=== PATIENT | female | born 1965 | race Caucasian/White ===

== ENCOUNTER → 2017-09-13 07:14 | Outpatient (CLI) | payer BC, SELFPAY ==
[2017-09-13 09:00] LABS: ALB/GLOB Ratio 1.1 RATIO (0.9-2.4); AST(SGOT) 17 U/L (15-37); Alanine Aminotransfer ALT/SGPT 25 U/L (13-56); Albumin, Serum 3.9 g/dL (3.2-5.0); Alkaline Phosphatase 66 U/L (45-117); Anion Gap 7 (5-15); BUN 17 mg/dL (7-18); BUN/Creat Ratio 21.1 RATIO (10-20); Calcium,Total 8.9 mg/dL (8.5-10.1); Chloride 107 mmol/L (98-107); Creatinine, Serum 0.81 mg/dL (0.55-1.02); EST Glomerular Filtration Rate 80 mL/min (>60); Est Glom Filt Rate - Afr Amer 97 mL/min (>60); Free T3 2.9 pg/mL (2.18-3.98); Globulin 3.7 g/dL (2.2-4.2); Glucose 82 mg/dL (74-106); Protein, Total 7.6 g/dL (6.4-8.2); Sodium Level 142 mmol/L (136-145); T4 Free Direct 1.03 ng/dL (0.76-1.46); Thyroid Stim Hormone (TSH) 1.15 uIU/mL (0.358-3.74)
[2017-09-13 10:47] LABS: Vitamin D,25 Hydroxy 59.6 ng/mL (29.95-100.01)
== END ==
PROVIDERS: Family Provider Family Medicine; PCP Family Medicine; Visit Provider Internal Medicine Endocrinology, Diabetes & Metabolism
DX: E89.0 Postprocedural hypothyroidism (principal); E55.9 Vitamin D deficiency, unspecified
CPT/HCPCS: 36415; 80053; 82306; 84439; 84443; 84481

== ENCOUNTER → 2017-09-25 07:35 | Outpatient (CLI) | payer BC, SELFPAY ==
[2017-09-25 08:57] LABS: Glucose 90 mg/dL (74-106)
[2017-09-25 09:07] LABS: Hemoglobin A1c 5.2 % (4.2-6.3)
[2017-09-25 09:11] LABS: Insulin 10.9 mU/L (2.6-37.6)
== END ==
PROVIDERS: Family Provider Family Medicine; PCP Family Medicine; Visit Provider Internal Medicine Endocrinology, Diabetes & Metabolism
DX: Z13.1 Encounter for screening for diabetes mellitus (principal)
CPT/HCPCS: 36415; 82947; 83036; 83525

== ENCOUNTER → 2018-02-24 07:05 | Outpatient (CLI) | payer OTHER, SELFPAY ==
[2018-02-24 09:19] LABS: Free T3 2.8 pg/mL (2.18-3.98); T4 Free Direct 1.09 ng/dL (0.76-1.46); Thyroid Stim Hormone (TSH) 0.97 uIU/mL (0.358-3.74)
[2018-02-24 09:21] LABS: Vitamin D,25 Hydroxy 43.7 ng/mL (29.95-100.01)
== END ==
PROVIDERS: Family Provider Family Medicine; PCP Family Medicine; Visit Provider Family Medicine
DX: E89.0 Postprocedural hypothyroidism (principal); E55.9 Vitamin D deficiency, unspecified
CPT/HCPCS: 36415; 82306; 84439; 84443; 84481

== ENCOUNTER → 2018-04-30 16:27 | Outpatient (CLI) | payer OTHER, SELFPAY ==
[2018-05-05 15:55] LABS: HPV Reflexed? NOT INDICATED
== END ==
PROVIDERS: Family Provider Family Medicine; PCP Family Medicine; Referring Provider Obstetrics & Gynecology; Visit Provider Obstetrics & Gynecology
DX: Z12.4 Encounter for screening for malignant neoplasm of cervix (principal)
CPT/HCPCS: 88175; G0145

== ENCOUNTER → 2018-05-19 11:59 | Outpatient (CLI) | payer OTHER, SELFPAY ==
--- NOTE | 2018-05-19 12:03 | RAD_ITS ---
STUDY: X-RAY - LEFT ELBOW REASON FOR EXAM: Female, 52 years old. Status post fall pain TECHNIQUE: 3 view(s) of the elbow. COMPARISON: None. FINDINGS: Normal visualized humerus, and ulna. Normal radiocapitellar and ulnotrochlear articulations. There is a small to moderate joint effusion. There is a suggestion of a trace step-off within the radial head. RAD/Elbow min 3 Views IMPRESSION: Joint effusion. AP view showing possible trace step-off within the radial head. Otherwise a fracture line is not definitively identified. An MRI may be necessary for evaluation. Electronically Signed: Le Guillermo MD at 18:52 EST Tel , Service support ,
== END ==
PROVIDERS: Family Provider Family Medicine; PCP Family Medicine; Referring Provider Family Medicine; Visit Provider Family Medicine
DX: S50.02XA Contusion of left elbow, initial encounter (principal); X58.XXXA Exposure to other specified factors, initial encounter; Y93.9 Activity, unspecified; Y92.9 Unspecified place or not applicable; Y99.9 Unspecified external cause status
CPT/HCPCS: 73080

== ENCOUNTER → 2018-06-23 07:08 | Outpatient (CLI) | payer OTHER, SELFPAY ==
--- NOTE | 2018-06-23 07:10 | BI_ITS ---
MAMMOGRAPHY - BILATERAL SCREENING REASON FOR EXAM: Female, 52 years old. Routine annual screening examination. PERTINENT HISTORY: Non-contributory. TECHNIQUE: Digital bilateral breast yuko (3D mammographic acquisition) in the CC and MLO projections. 2-D mediolateral oblique (MLO) and craniocaudad (CC) views of both breasts were obtained. CAD: Full Field Digital Mammography with Computer Added Detection was performed. COMPARISON: Comparison is made with prior study dated April 26, 2017 and February 14, 2016. FINDINGS: Breast Composition: There are scattered areas of fibroglandular density. There are no dominant masses or suspicious calcifications. No other significant abnormalities are identified. There has been no significant change since the prior study. BI/SCREENING MAMM (CAD), BILAT IMPRESSION: Stable bilateral screening mammogram. Yearly follow-up mammogram recommended. (A) ASSESSMENT CATEGORY: BIRADS Category 1: Negative. A letter regarding these results will be sent to the patient by the facility within 30 days. Approximately 10% of breast cancers are not detected by mammography. A normal mammogram should not delay biopsy of a clinically suspicious abnormality. [id number] Electronically Signed: Josiah Hurtado MD at 13:11 EST Tel [phone], Service support ,
== END ==
PROVIDERS: Family Provider Family Medicine; PCP Family Medicine; Referring Provider Obstetrics & Gynecology; Visit Provider Obstetrics & Gynecology
DX: Z12.31 Encounter for screening mammogram for malignant neoplasm of breast (principal)
CPT/HCPCS: 77063; 77067

== ENCOUNTER → 2018-12-25 14:17 | Outpatient (CLI) | payer OTHER, SELFPAY | PROVIDERS: Family Provider Family Medicine; PCP Family Medicine; Referring Provider Family Medicine; Visit Provider Family Medicine | DX: R10.9 Unspecified abdominal pain (principal) | CPT/HCPCS: 87086; 87088; 87186 ==

== ENCOUNTER → 2019-03-31 12:14 | Outpatient (CLI) | payer OTHER, SELFPAY ==
--- NOTE | 2019-03-31 12:19 | RAD_ITS ---
STUDY: X-RAY CHEST REASON FOR EXAM: Female, 53 years old. Cough TECHNIQUE: PA and lateral views of the chest COMPARISON: None. FINDINGS: The lungs are clear. There are no pleural effusions. There is no pneumothorax. The heart is enlarged. The visualized osseous structures are within normal limits. RAD/Chest PA and Lateral IMPRESSION: No acute thoracic pathology. Cardiomegaly. Electronically Signed: Selvin Barbosa, at 21:43 EDT Tel , Service support ,
== END ==
PROVIDERS: Family Provider Family Medicine; PCP Family Medicine; Referring Provider Family Medicine; Visit Provider Family Medicine
DX: R05 Cough (principal)
CPT/HCPCS: 71046

== ENCOUNTER 2019-04-07 07:55 | Emergency (ER) | payer OTHER, SELFPAY ==
[2019-04-07 07:56] VITALS: BP 159/110; PULSE 65; RESP 18; TEMP 36.8; O2SAT 97; BMI 25.4
--- NOTE | 2019-04-07 08:16 | RAD_ITS ---
STUDY: X-RAY CHEST REASON FOR EXAM: Female, 53 years old. Chest pain. Tingling in the left upper extremity. TECHNIQUE: PA and lateral views of the chest. COMPARISON: Comparison is made with prior examination in March 31, 2019. FINDINGS: EKG electrodes are seen. The lungs are clear and expanded. There is no demonstrated pleural abnormality. Normal size heart. Normal mediastinum and jesus. Normal visualized pulmonary arteries. Normal visualized aortic arch and descending thoracic aorta. Normal visualized thoracic spine. Normal visualized ribs, clavicles, and shoulders. Once again, there is evidence of a pectus excavatum deformity. There is no demonstrated abnormality of the visualized soft tissue structures of the upper abdomen. RAD/Chest PA and Lateral IMPRESSION: Normal x-ray examination of the chest. Electronically Signed: Josiah Hurtado, at 8:46 EDT , Service support ,
--- NOTE | 2019-04-07 08:16 | EKG12_ITS ---
Test Reason : CP Blood Pressure : / mmHG Vent. Rate : 058 BPM Atrial Rate : 058 BPM P-R Int : 134 ms QRS Dur : 092 ms QT Int : 460 ms P-R-T Axes : 071 -21 -12 degrees QTc Int : 451 ms Sinus bradycardia Possible Left atrial enlargement Incomplete right bundle branch block Nonspecific ST abnormality Abnormal ECG Confirmed by TIKA ORTA ([id number]), editor in chief newspaper JEANNA CHOWDHURY ([id number]) on 04/13/2019 8:59:31 AM Referred By: Alicia Ram Confirmed By:TIKA ORTA
--- NOTE | 2019-04-07 08:22 | ED.DCSUM_ITS ---
- ER Visit Summary Date of Service: 04/07/19 Chief Complaint: Atypical chest pain and malaise History of Present Illness: The patient is a 53 F past medical history of hypothyroidism due to thyroidectomy. States she just has not felt well for 5 to 6 weeks. Initially had a productive cough not a nonproductive cough. She says some atypical nonexertional chest pain for the last 2-1/2 weeks. She denies nausea, vomiting, diarrhea or fever. No exertional shortness of breath. No hemoptysis. She is never had a DVT or PE. She has had recent travel to [place] but that was after her symptoms started. She is had no leg pain or swelling. She has no cardiac history. Is never had a stress test or heart ca theterization. She has seen her primary care physician's office they placed her on medication for a cough that she uses at night. Physical Examination: Noise female no acute distress. Vital signs are stable and afebrile. Pulse ox 97% room air no signs of hypoxia. HEENT exam unremarkable. Neck nontender no lymphadenopathy. Lungs clear to auscultation bilaterally. Heart regular rate and rhythm no murmur. Chest wall nontender. Abdomen soft nontender. Extremities moves all 4. Calves are nontender without edema or cords. Neurologically she is awake and alert with no focal motor or sensory deficits. Back exam nontender. Skin unremarkable. Test Results: CBC normal white count of 6. Hemoglobin 15. Chemistries normal normal BUN and creatinine and gap. Troponin normal. EKG sinus rhythm rate of 58 with no acute signs of NH or ischemia unchanged from prior EKG from 2009. Chest x-ray AP lateral view read both by myself the radiologist as no acute abnormality. Normal. There is no cardiomegaly. D-dimer was slightly elevated at 1.13 for that reason we obtained a CTA of the chest which showed no PE and no dissection. Clinically my suspicion for PE is low. Emergency Department Course and Treatment: Patient will undergo cardiac work-up. I do not get a strong sense at all that this is cardiac chest pain. Other than recent travel she really has no DVT or PE risk factors. There is no family history of clotting disorder and her father had some cardiac disease but that was in his mid to late 60s. Repeat exam the patient is doing well. We went over all test results. She will be discharged home with outpatient follow-up. This does not sound like cardiac chest pain Treatment Plan: Patient follow-up with your doctor Disposition: Discharge Impression: Atypical chest pain uncertain etiology This note was generated with [employer] dictation software. It may contain incorrect words, spelling, and punctuation that were not noted in review of the chart prior to signing ED Disposition - Plan for ED Patient: Referrals: Reuben Luu MD [Primary Care Provider] -
[2019-04-07 08:37] LABS: Absolute Lymphocyte Count 1.97 X10^3/uL (0.83-4.51); Absolute Neutrophil Count 4.1 X10^3/uL (2.0-7.7); Basophil# 0.05 X10^3/uL; Basophil% 0.7 % (0-1); Eosinophils% 1.5 % (0-5); Hematocrit 46.4 % (37-47); Hemoglobin 15.3 g/dL (12.0-15.0); Lymphocyte # 1.97 X10^3/ul (4.0); Lymphocyte % 29.5 % (19-41); Mean Corpuscular Hgb 30.4 pg (27.0-32.0); Mean Corpuscular Volume 92.2 fL (81-99); Mean Platelet Vol. 11.2 fl (6.2-12.0); Monocyte# 0.42 X10^3/uL; Monocyte% 6.3 % (0-10); NRBC Flagged by Analyzer 0 % (0-5); Neutrophil % 61.6 % (47-70); Platelet Count 205 K/mm3 (150-450); RBC Distribution Width CV 12.5 % (11.6-14.6); RBC Distribution Width SD 42.2 fl (35.1-43.9); Red Blood Count 5.03 M/mm3 (4.2-5.4); White Blood Count 6.7 K/mm3 (4.4-11.0)
[2019-04-07 08:51] LABS: Anion Gap 4 (5-15); BUN 19 mg/dL (7-18); BUN/Creat Ratio 21.9 RATIO (10-20); Calcium,Total 9.5 mg/dL (8.5-10.1); Chloride 105 mmol/L (98-107); Creatinine, Serum 0.87 mg/dL (0.55-1.02); EST Glomerular Filtration Rate 73 mL/min (>60); Est Glom Filt Rate - Afr Amer 88 mL/min (>60); Estimated Creatinine Clearance 79.05 ml/min; Glucose 76 mg/dL (74-106); Potassium 3.5 mmol/L (3.5-5.1); Sodium Level 142 mmol/L (136-145)
[2019-04-07 08:55] VITALS: O2SAT 99
[2019-04-07 09:07] LABS: D-Dimer Quantitative (DVT/PE) 1.13 FEU/ug/m (0.27-0.49)
--- NOTE | 2019-04-07 09:17 | CT_ITS ---
STUDY: CTA CHEST REASON FOR EXAM: Female, 53 years old. Chest pain. Elevated d-dimer. RADIATION DOSAGE (If Supplied By Facility): CTDIvol = ( 11.87 ) mGy, DLP = ( 318.04 ) mGycm TECHNIQUE: The examination was performed with the intravenous administration of IV 100mL Isovue-370 100. Post-processing of the angiographic images was performed, with multiplanar reformation and 3D reconstruction. Individualized dose optimization techniques were used for this CT. COMPARISON: None. FINDINGS: Normal enhancement of the main pulmonary artery and right and left pulmonary arteries. Normal enhancement of the bilateral peripheral pulmonary arteries. There is no demonstrated pulmonary embolism. Normal thoracic aorta and visualized great vessels. There is no demonstrated aortic dissection. Normal heart and pericardium. Normal mediastinum. Normal hilar regions. Normal visualized trachea and bronchi. The lungs are well expanded. Mild degree of increased markings at the lung bases suggestive of linear atelectasis. Normal pleura. Normal chest wall structures. Normal osseous structures. Normal visualized upper abdomen. CT/CTA Chest W/WO Contrast IMPRESSION: Normal CTA chest examination, without a demonstrated pulmonary embolism or arterial dissection. Electronically Signed: Josiah Hurtado, at 9:56 EDT , Service support ,
--- NOTE | 2019-04-07 10:07 | ED.DEP ---
ED Disposition - Plan for ED Patient: Disposition: Home or Assisted Living Instructions: CHEST PAIN, Uncertain Cause Referrals: Reuben Luu MD [Primary Care Provider] - 3-5 Days Additional Instructions: Follow-up with your doctor or return if worse. Your tests today were normal including your EKG, blood work and CAT scan your chest.
[2019-04-07 10:29] VITALS: BP 124/66; PULSE 74; RESP 13; O2SAT 96
== END 2019-04-07 10:29 | disposition home or self-care (01) ==
PROVIDERS: Emergency Provider Emergency Medicine; Family Provider Family Medicine; PCP Family Medicine
DX: R07.89 Other chest pain (principal); E89.0 Postprocedural hypothyroidism; Z79.899 Other long term (current) drug therapy
CPT/HCPCS: 71046; 71275; 80048; 84484; 85025; 85379; 93005; 99285; Q9967; A4216

== ENCOUNTER → 2019-04-15 07:54 | Outpatient (CLI) | payer OTHER, SELFPAY ==
[2019-04-07 07:56] VITALS: BMI 25.4
--- NOTE | 2019-04-15 07:58 | ECHOD_ITS ---
Reason For Study: Enlarged Heart Procedure This was a 2D Doppler, Color Flow transthoracic echocardiogram. Exam performed in department. Left Ventricle Normal LV size. Left ventricular systolic function is normal. The estimated ejection fraction is 65 %. Stage 2 diastolic dysfunction. No regional wall motion abnormalities noted. Right Ventricle Normal RV size. Normal systolic function. Atria Normal left atrium. Normal right atrium. Bubble contrast study negative for right to left interatrial shunt. Mitral Valve Normal mitral valve. Mild (1+) eccentric mitral valve insufficiency. Tricuspid Valve Normal tricuspid valve. Mild tricuspid valve insufficiency. Pulmonary artery systolic pressure is 28 mmHg. Aortic Valve Normal aortic valve. Trisinus/trileaflet aortic valve. Pulmonic Valve Normal pulmonic valve. Great Vessels Normal aortic root. The pulmonary artery is normal size. Normal inferior vena cava. Pericardium/Pleural No pericardial effusion. Medication Performed a rapid injection of agitated mix of 9 cc saline and 1cc air to assess for atrial septal defect. MMode/2D Measurements & Calculations LVIDd: 4.7 cm IVSd: 0.73 cm Ao root diam: 3.4 cm LVIDs: 3.0 cm LVPWd: 0.76 cm RVDd: 3.1 cm FS: 37.3 % LAV(MOD-bp): 32.4 ml LVAd ap4: 25.6 cm2 SV(MOD-sp4): 41.3 ml LAV(MOD-bp) Indexed: 18.5 ml/m2 EDV(MOD-sp4): 70.5 ml LAV(MOD-sp2): 33.8 ml EDV(sp4-el): 72.0 ml LAV(MOD-sp4): 30.8 ml LVAs ap4: 15.1 cm2 ESV(MOD-sp4): 29.1 ml ESV(sp4-el): 28.5 ml EF(MOD-sp4): 58.6 % EF(sp4-el): 60.4 % SV(sp4-el): 43.5 ml LA A4 area: 14.3 cm2 LA dimension(2D): 2.9 cm RA A4 area: 14.2 cm2 Doppler Measurements & Calculations MV E max jono: 92.1 cm/sec Lat Peak E' Jono: 11.2 cm/sec Med Peak E' Jono: 5.9 cm/sec MV A max jono: 58.1 cm/sec E/E' lat: 8.2 E/E' med: 15.6 MV E/A: 1.6 Ao V2 max: 149.5 cm/sec LV V1 max: 97.8 cm/sec PA V2 max: 66.4 cm/sec Ao max P.9 mmHg LV V1 max P.8 mmHg Ao V2 mean: 102.1 cm/sec Ao mean P.5 mmHg Ao V2 VTI: 33.7 cm PI end-d jono: 105.9 cm/sec TR max jono: 244.1 cm/sec TR max P.8 mmHg Interpretation Summary Normal LV size. Left ventricular systolic function is normal. The estimated ejection fraction is 65 %. Stage 2 diastolic dysfunction. Structurally normal valves. Ordering Physician: Alicia Ram Referring Physician: Micha Luu Performed By: Morelia Cosby, RUBENS, RVT
== END ==
PROVIDERS: Family Provider Family Medicine; PCP Family Medicine; Referring Provider Family Medicine; Visit Provider Family Medicine
DX: I51.7 Cardiomegaly (principal)
CPT/HCPCS: 93306; A4216

== ENCOUNTER → 2019-05-01 10:04 | Outpatient (CLI) | payer OTHER, SELFPAY ==
[2019-04-07 07:56] VITALS: BMI 25.4
[2019-05-06 20:07] LABS: HPV Genotype 16, Aptima Negative (Negative)
[2019-05-07 11:20] LABS: HPV APTIMA, High Risk Positive (Negative); HPV Genotype 18,45 Aptima Negative (Negative)
== END ==
PROVIDERS: Family Provider Family Medicine; PCP Family Medicine; Visit Provider Obstetrics & Gynecology
DX: Z12.72 Encounter for screening for malignant neoplasm of vagina (principal)
CPT/HCPCS: 87624; 88175; G0145

== ENCOUNTER → 2019-06-17 14:28 | Outpatient (CLI) | payer OTHER, SELFPAY ==
--- NOTE | 2019-06-17 | IMM_PTH ---
PATIENT: RON LOZANO LOC: [facility] U#:[id number] AGE/SX: 59/F ROOM: RE06/17/[address]: Dr. Alma Merrill MD : 1965 BED: DIS: SPEC #: [id number] RECD: 06/19/19 13:06 STATUS: ALCIDES REKika #: [id number] YANNA: 06/17/19 00:[address]: Alma An DEPT: IMMUNOHISTOCHEMISTRY RECD BY: Montse Claudio Tissues: Vagina, NOS Procedures: p16 (initial) KI-67 (add) PHYSICIAN & INSTITUTION [place] [id number] SPECIMEN INFORMATION: Tissue Source: Vaginal biopsy Clinical Info: Prior hysterectomy, positive HR/HPV, inflammation Specimen Number: [id number] CPT code: 11491, 97477 METHODOLOGY: Deparaffinized sections of prefer/formalin-fixed tissue or PAP/DQ stained slides are incubated with monoclonal/polyclonal antibodies/oligonucleotide probes. Localization is made via biotin free immunoperoxidase method. Appropriate controls are performed and reacted as expected. Results on target cell population are indicated in the following table: RESULTS: ANTIBODY / CLONE RESULT P16 (E6H4) negative Ki-67 (30-9) negative These tests were developed and their performance characteristics determined by [facility]. They may not have been cleared or approved by the U.S. Food and Drug Administration. The FDA has determined that such clearance or approval is not necessary. The above immunohistochemical/dualISH markers are ordered and reviewed by the Pathologist. INTERPRETATION: Vaginal biopsy: Focal minimal changes suspicious for HPV cytopathic effects. SJ:[email or web address] 06/22/19
--- NOTE | 2019-06-17 14:00 | TISS_PTH ---
PATIENT: RON LOZANO LOC: [facility] U#:[id number] AGE/SX: 59/F ROOM: RE06/17/[address]: Dr. Alma Merrill MD : 1965 BED: DIS: SPEC #: [id number] RECD: 06/17/19 17:18 STATUS: ALCIDES SHAWN #: [id number] YANNA: 06/17/19 14:[address]: Alma An DEPT: SURGICAL PATHOLOGY RECD BY: Tyrese Rolon Tissues: Vagina, NOS Procedures: Surgery Specimen Level IV HEADER OPERATION: Colposcopy PRE-OP DIAGNOSIS: Prior hysterectomy, positive HR/HPV; inflammation TISSUE SUBMITTED: Vaginal biopsy MICROSCOPIC DIAGNOSIS Vaginal biopsy: A fragment of squamous mucosa with focal minimal changes suspicious for HPV cytopathic effects. See comment. MIMI:[email or web address] 06/19/19 COMMENT Immunohistochemistry ([id number]) for surrogate HPV marker (p16) supports the above diagnosis. MICROSCOPIC DESCRIPTION Slides are reviewed. GROSS DESCRIPTION Received in fixative is one container labeled with the patient's name and designated vaginal biopsy. The specimen consists of one irregular fragment of light marquez soft tissue that measures 0.2 x 0.2 x 0.1 cm. The specimen is totally submitted in one cassette. / SJ:rajinder 06/18/19 TC:5 [facility]: [id number]
[2019-06-17 19:41] LABS: Rapid Plasmin Reagin (RPR) NONREACTIVE (NONREACTIVE)
[2019-06-17 22:29] LABS: Chlamydia Trachomatis by PCR Negative (Negative); Neisserai gonorrhoeae by PCR Negative (Negative); Probe Check PASS; Sample Adequacy Control PASS; Specimen Processing Control PASS
[2019-06-18 09:47] LABS: Hepatitis C Antibody Non-Reactive (Nonreactive)
[2019-06-18 16:15] LABS: HIV - WCH Non-Reactive (Nonreactive)
== END ==
PROVIDERS: Referring Provider Obstetrics & Gynecology; Visit Provider Obstetrics & Gynecology
DX: Z11.3 Encounter for screening for infections with a predominantly sexual mode of transmission (principal); Z90.710 Acquired absence of both cervix and uterus
CPT/HCPCS: 36415; 86592; 86703; 86803; 87491; 87591; 88305; 88341; 88342

== ENCOUNTER → 2019-06-25 07:30 | Outpatient (CLI) | payer OTHER, SELFPAY ==
--- NOTE | 2019-06-25 07:32 | BI_ITS ---
MAMMOGRAPHY - BILATERAL SCREENING REASON FOR EXAM: Female, 53 years old. Routine annual screening examination. PERTINENT HISTORY: Non-contributory. TECHNIQUE: Digital bilateral breast minesh (3D mammographic acquisition) in the CC and MLO projections. 2-D mediolateral oblique (MLO) and craniocaudad (CC) views of both breasts were obtained. CAD: Full Field Digital Mammography with Computer Added Detection was performed. COMPARISON: Comparison is made with prior study dated 02/21/2019 and April 26, 2017. FINDINGS: Breast Composition: There are scattered areas of fibroglandular density. There are no dominant masses or suspicious calcifications. Stable benign-appearing bilateral axillary lymph nodes. No other significant abnormalities are identified. There has been no significant change since the prior study. BI/SCREEN MAMM (CAD) W/MINESH BILAT IMPRESSION: Stable bilateral screening mammogram. Yearly follow-up mammogram recommended. (A) ASSESSMENT CATEGORY: BIRADS Category 2: Benign. A letter regarding these results will be sent to the patient by the facility within 30 days. Approximately 10% of breast cancers are not detected by mammography. A normal mammogram should not delay biopsy of a clinically suspicious abnormality. [id number] Electronically Signed: Josiah Hurtado, at 9:34 EST , Service support ,
== END ==
PROVIDERS: Family Provider Family Medicine; PCP Family Medicine; Referring Provider Obstetrics & Gynecology; Visit Provider Obstetrics & Gynecology
DX: Z12.31 Encounter for screening mammogram for malignant neoplasm of breast (principal)
CPT/HCPCS: 77063; 77067

== ENCOUNTER → 2019-11-17 07:25 | Outpatient (CLI) | payer OTHER, SELFPAY ==
[2019-11-17 10:28] LABS: Vitamin D,25 Hydroxy 43.7 ng/mL
[2019-11-17 10:41] LABS: Anion Gap 7 (5-15); BUN 22 mg/dL (7-18); BUN/Creat Ratio 26.5 RATIO (10-20); Calcium,Total 9.3 mg/dL (8.5-10.1); Chloride 106 mmol/L (98-107); Cholesterol 198 mg/dL (200); Creatinine, Serum 0.83 mg/dL (0.55-1.02); EST Glomerular Filtration Rate 77 mL/min (>60); Est Glom Filt Rate - Afr Amer 93 mL/min (>60); Glucose 88 mg/dL (74-106); High Density Lipoprotein 64 mg/dL; Potassium 3.9 mmol/L (3.5-5.1); Sodium Level 141 mmol/L (136-145); T4 Free Direct 1.27 ng/dL (0.76-1.46); Thyroid Stim Hormone (TSH) 0.08 uIU/mL (0.358-3.74); Triglycerides 55 mg/dL; Very Low Density Lipoprotein 11 mg/dL (5-40)
== END ==
PROVIDERS: PCP Family Medicine; Referring Provider Family Medicine; Visit Provider Family Medicine
DX: E89.0 Postprocedural hypothyroidism (principal); E55.9 Vitamin D deficiency, unspecified; Z13.220 Encounter for screening for lipoid disorders; Z13.1 Encounter for screening for diabetes mellitus
CPT/HCPCS: 36415; 80048; 80061; 82306; 84439; 84443

== ENCOUNTER → 2020-06-21 13:20 | Outpatient (CLI) | payer OTHER, SELFPAY ==
[2020-06-23 15:10] LABS: HPV Reflexed? NOT INDICATED
== END ==
PROVIDERS: PCP Family Medicine; Visit Provider Obstetrics & Gynecology
DX: Z12.72 Encounter for screening for malignant neoplasm of vagina (principal)
CPT/HCPCS: 88175; G0145

== ENCOUNTER → 2020-06-30 07:31 | Outpatient (CLI) | payer OTHER, SELFPAY ==
--- NOTE | 2020-06-30 07:34 | BI_ITS ---
MAMMOGRAPHY - BILATERAL SCREENING REASON FOR EXAM: Female, 54 years old. Routine annual screening examination. PERTINENT HISTORY: Non-contributory. TECHNIQUE: Digital bilateral breast minesh (3D mammographic acquisition) in the CC and MLO projections. 2-D mediolateral oblique (MLO) and craniocaudad (CC) views of both breasts were obtained. CAD: Full Field Digital Mammography with Computer Added Detection was performed. COMPARISON: Comparison is made with prior study dated 06/25/2019 and 06/23/2018. FINDINGS: Breast Composition: There are scattered areas of fibroglandular density. There are no dominant masses or suspicious calcifications. Stable benign-appearing bilateral axillary lymph nodes. No other significant abnormalities are identified. There has been no significant change since the prior study. BI/SCRN MAMM (CAD)W/MINESH BILAT IMPRESSION: Stable bilateral screening mammogram. Yearly follow-up mammogram recommended. (A) ASSESSMENT CATEGORY: BIRADS Category 2: Benign. A letter regarding these results will be sent to the patient by the facility within 30 days. Approximately 10% of breast cancers are not detected by mammography. A normal mammogram should not delay biopsy of a clinically suspicious abnormality. [id number] Electronically Signed: Josiah Hurtado MD at 8:30 EST , Service support ,
== END ==
PROVIDERS: PCP Family Medicine; Referring Provider Obstetrics & Gynecology; Visit Provider Obstetrics & Gynecology
DX: Z12.31 Encounter for screening mammogram for malignant neoplasm of breast (principal)
CPT/HCPCS: 77063; 77067

== ENCOUNTER 2020-09-09 14:13 | Outpatient (RCR) | payer OTHER, SELFPAY | END 2020-11-15 23:59 | LOC: IMMUN 14:13 | PROVIDERS: PCP Family Medicine; Referring Provider Family Medicine; Visit Provider Family Medicine | DX: Z23 Encounter for immunization (principal) | CPT/HCPCS: 0001A; 0002A; 91300 ==

== ENCOUNTER → 2020-11-29 07:30 | Outpatient (CLI) | payer OTHER, SELFPAY ==
[2020-11-29 10:51] LABS: Anion Gap 4 (5-15); BUN 17 mg/dL (7-18); BUN/Creat Ratio 21.5 RATIO (10-20); Calcium,Total 8.5 mg/dL (8.5-10.1); Chloride 109 mmol/L (98-107); Cholesterol 187 mg/dL (200); Creatinine, Serum 0.79 mg/dL (0.55-1.02); EST Glomerular Filtration Rate 81 mL/min (>60); Est Glom Filt Rate - Afr Amer 97 mL/min (>60); Glucose 87 mg/dL (74-106); High Density Lipoprotein 61 mg/dL; Potassium 3.8 mmol/L (3.5-5.1); Sodium Level 143 mmol/L (136-145); T4 Free Direct 1.03 ng/dL (0.76-1.46); Thyroid Stim Hormone (TSH) < 0.01 uIU/mL (0.358-3.74); Triglycerides 76 mg/dL; Very Low Density Lipoprotein 15 mg/dL (5-40)
== END ==
PROVIDERS: PCP Family Medicine; Referring Provider Family Medicine; Visit Provider Family Medicine
DX: E89.0 Postprocedural hypothyroidism (principal); Z13.1 Encounter for screening for diabetes mellitus; Z13.220 Encounter for screening for lipoid disorders
CPT/HCPCS: 36415; 80048; 80061; 84439; 84443

== ENCOUNTER 2021-07-19 15:42 | Outpatient (CLI) | payer OTHER, SELFPAY ==
[2021-07-25 15:18] LABS: HPV APTIMA, High Risk Negative (Negative)
== END 2021-07-19 23:59 | disposition home or self-care (01) ==
LOC: LABSPEC 15:43
PROVIDERS: PCP Family Medicine; Visit Provider Obstetrics & Gynecology
DX: Z12.4 Encounter for screening for malignant neoplasm of cervix (principal)
CPT/HCPCS: 87624; 88175; G0145

== ENCOUNTER 2021-08-16 07:22 | Outpatient (CLI) | payer OTHER, SELFPAY ==
--- NOTE | 2021-08-16 07:23 | BI_ITS ---
MAMMOGRAPHY - BILATERAL SCREENING REASON FOR EXAM: Female, 55 years old. Routine annual screening examination. PERTINENT HISTORY: Non-contributory. TECHNIQUE: Digital bilateral breast minesh (3D mammographic acquisition) in the CC and MLO projections. 2-D mediolateral oblique (MLO) and craniocaudad (CC) views of both breasts were obtained. CAD: Full Field Digital Mammography with Computer Added Detection was performed. COMPARISON: Comparison is made with prior study dated 06/30/2020 and 06/25/2019. FINDINGS: Breast Composition: There are scattered areas of fibroglandular density. There are no dominant masses or suspicious calcifications. Stable small benign-appearing bilateral axillary lymph nodes. No other significant abnormalities are identified. There has been no significant change since the prior study. BI/SCRN MAMM (CAD)W/MINESH BILAT IMPRESSION: Stable bilateral screening mammogram. Yearly follow-up mammogram recommended. (A) ASSESSMENT CATEGORY: BIRADS Category 2: Benign. A letter regarding these results will be sent to the patient by the facility within 30 days. Approximately 10% of breast cancers are not detected by mammography. A normal mammogram should not delay biopsy of a clinically suspicious abnormality. [id number] Electronically Signed: Josiah Hurtado MD at 8:39 EST ,
== END 2021-08-16 23:59 | disposition home or self-care (01) ==
LOC: OPBI 07:22
PROVIDERS: PCP Family Medicine; Visit Provider Obstetrics & Gynecology
DX: Z12.31 Encounter for screening mammogram for malignant neoplasm of breast (principal)
CPT/HCPCS: 77063; 77067

== ENCOUNTER → 2021-11-28 | Outpatient (CLI) | payer OTHER, SELFPAY ==
[2021-11-28 08:31] LABS: Anion Gap 8 (5-15); BUN 13 mg/dL (7-18); BUN/Creat Ratio 15.9 RATIO (10-20); Calcium,Total 9.3 mg/dL (8.5-10.1); Chloride 105 mmol/L (98-107); Cholesterol 188 mg/dL (200); Creatinine, Serum 0.82 mg/dL (0.55-1.02); EST Glomerular Filtration Rate 77 mL/min (>60); Est Glom Filt Rate - Afr Amer 94 mL/min (>60); Glucose 95 mg/dL (74-106); High Density Lipoprotein 64 mg/dL; Potassium 3.9 mmol/L (3.5-5.1); Sodium Level 141 mmol/L (136-145); T4 Free Direct 1.17 ng/dL (0.76-1.46); Thyroid Stim Hormone (TSH) < 0.01 uIU/mL (0.358-3.74); Triglycerides 94 mg/dL; Very Low Density Lipoprotein 19 mg/dL (5-40)
== END | disposition home or self-care (01) ==
LOC: LAB 06:30
PROVIDERS: PCP Family Medicine; Referring Provider Nurse Practitioner Family; Visit Provider Nurse Practitioner Family
DX: E89.0 Postprocedural hypothyroidism (principal); Z13.1 Encounter for screening for diabetes mellitus; Z13.220 Encounter for screening for lipoid disorders
CPT/HCPCS: 36415; 80048; 80061; 84439; 84443

== ENCOUNTER → 2022-02-22 | Outpatient (CLI) | payer OTHER, SELFPAY ==
[2022-02-22 15:01] LABS: Absolute Lymphocyte Count 2.28 X10^3/uL (0.83-4.51); Basophil# 0.09 X10^3/uL; Eosinophil# 0.05 X10^3/uL; Eosinophils% 0.5 % (0-5); Hematocrit 44.8 % (37-47); Hemoglobin 14.3 g/dL (12.0-15.0); Lymphocyte # 2.28 X10^3/ul (0.83-4.51); Mean Corp Hgb Conc 31.9 g/dL (32-36); Mean Corpuscular Hgb 29.4 pg (27.0-32.0); Mean Corpuscular Volume 92.2 fL (81-99); Mean Platelet Vol. 11.6 fl (6.2-12.0); Monocyte# 0.65 X10^3/uL; Monocyte% 7.1 % (0-10); NRBC Flagged by Analyzer 0 % (0-5); Neutrophil # 6.03 X10^3/uL (2.7-7.7); Neutrophil % 66.2 % (47-70); Platelet Count 241 K/mm3 (150-450); RBC Distribution Width CV 13.3 % (11.6-14.6); RBC Distribution Width SD 45.1 fl (35.1-43.9); Red Blood Count 4.86 M/mm3 (4.2-5.4); White Blood Count 9.1 K/mm3 (4.4-11.0)
[2022-02-22 15:11] LABS: Erythrocyte Sedimentation Rate 51 mm/hr (0-30)
[2022-02-22 15:22] LABS: Vitamin B12 480 pg/mL (211-911)
[2022-02-22 15:28] LABS: ALB/GLOB Ratio 0.8 RATIO (0.9-2.4); AST(SGOT) 20 U/L (15-37); Alanine Aminotransfer ALT/SGPT 42 U/L (13-56); Albumin, Serum 3.4 g/dL (3.2-5.0); Alkaline Phosphatase 73 U/L (45-117); Anion Gap 10 (5-15); BUN 18 mg/dL (7-18); BUN/Creat Ratio 19.1 RATIO (10-20); Calcium,Total 9.2 mg/dL (8.5-10.1); Chloride 105 mmol/L (98-107); Creatinine, Serum 0.94 mg/dL (0.55-1.02); EST Glomerular Filtration Rate 65 mL/min (>60); Est Glom Filt Rate - Afr Amer 79 mL/min (>60); Ferritin 229 ng/mL (8-252); Free T3 2.9 pg/mL (2.18-3.98); Globulin 4.5 g/dL (2.2-4.2); Glucose 100 mg/dL (74-106); Iron 48 ug/dL (50-170); Magnesium 2.3 mg/dL (1.6-2.6); Potassium 3.4 mmol/L (3.5-5.1); Protein, Total 7.9 g/dL (6.4-8.2); Sodium Level 138 mmol/L (136-145); T4 Free Direct 1.46 ng/dL (0.76-1.46); Thyroid Stim Hormone (TSH) 0.05 uIU/mL (0.358-3.74)
[2022-02-27 16:34] LABS: ANTINUCLEAR ANTIBODIES DIRECT Negative (Negative)
== END | disposition home or self-care (01) ==
LOC: MFPLAB 12:28
PROVIDERS: PCP Family Medicine; Referring Provider Family Medicine; Visit Provider Family Medicine
DX: R20.0 Anesthesia of skin (principal); R10.9 Unspecified abdominal pain; E89.0 Postprocedural hypothyroidism
CPT/HCPCS: 36415; 80053; 82306; 82607; 82728; 83540; 83735; 84439; 84443; 84481; 85025; 85652; 86038; 86140

== ENCOUNTER → 2022-03-01 | Outpatient (CLI) | payer OTHER, SELFPAY ==
--- NOTE | 2022-03-01 15:34 | MRI_ITS ---
STUDY: MRI BRAIN WITHOUT CONTRAST REASON FOR EXAM: Female, 56 years old. GARCIA, Dizziness, Numbness TECHNIQUE: Standardized multiplanar fat and water weighted pulse sequences were obtained. COMPARISON: None. FINDINGS: No intracranial mass, mass effect or midline shift. No hemorrhage, territorial infarct or acute ischemia. Normal size of the ventricles and extra-axial spaces for the patient''s age. There are a limited number of small white matter hyperintensities, distributed throughout the deep white matter tracts of the cerebral hemispheres, consistent with mild chronic white matter ischemic changes. Normal bilateral basal ganglia. Normal thalami. There is no extra-axial fluid accumulation. Normal flow voids within the major intracranial circulation suggesting patency by spin echo criteria. Pituitary gland is normal in height. Normal midbrain, liborio and medulla. Normal cerebellum. Normal basal cisterns. Normal bilateral temporal bones. Normal bilateral internal auditory canals. Mucosal thickening versus retention cyst in the left ethmoid sinus. Sinuses are otherwise clear. Normal calvarium and skull base. Normal visualized soft tissue structures. MRI/Brain without Contrast IMPRESSION: No acute findings. Trace hypervascular ischemic changes. Mild chronic sinusitis. Electronically Signed: Alina Landa MD at 23:08 EDT Reading Location ID and State: [id number] / Tel , Service support ,
== END | disposition home or self-care (01) ==
LOC: MRI 15:23
PROVIDERS: PCP Family Medicine; Visit Provider Family Medicine
DX: R42 Dizziness and giddiness (principal); R51.9 Headache, unspecified; R20.0 Anesthesia of skin
CPT/HCPCS: 70551

== ENCOUNTER → 2022-09-20 | Outpatient (CLI) | payer OTHER, SELFPAY ==
--- NOTE | 2022-09-20 07:08 | BI_ITS ---
MAMMOGRAPHY - BILATERAL SCREENING 3-D TOMOSYNTHESIS REASON FOR EXAM: Female, 56 years old. Routine screening PERTINENT HISTORY: No significant family history. TECHNIQUE: 2-D mammograms and 3-D Tomosynthesis of the breast (s) were performed. CAD was performed. COMPARISON: 06/30/2020 FINDINGS: The breast composition is almost entirely fat. Scattered benign calcifications are seen. No dense spiculated masses or suspicious microcalcifications are identified. No architectural distortion is identified. There is no skin thickening or retraction. There has been no significant change since the prior study. BI/SCRN MAMM (CAD)W/MINESH BILAT IMPRESSION: No mammographic signs of malignancy. Routine yearly mammograms recommended. ASSESSMENT CATEGORY: BIRADS Category 1: Negative. A letter regarding these results will be sent to the patient by the facility within 30 days. FOLLOW UP RECOMMENDATION: Yearly follow up mammogram recommended. (A) Approximately 10% of breast cancers are not detected by mammography. A normal mammogram should not delay biopsy of a clinically suspicious abnormality. Electronically Signed: Maurisio Bowman MD at 8:22 EDT ,
== END | disposition home or self-care (01) ==
LOC: OPBI 07:06
PROVIDERS: PCP Family Medicine; Referring Provider Student in an Organized Health Care Education/Training Program; Visit Provider Student in an Organized Health Care Education/Training Program
DX: Z12.31 Encounter for screening mammogram for malignant neoplasm of breast (principal)
CPT/HCPCS: 77063; 77067

== ENCOUNTER → 2022-12-26 | Outpatient (CLI) | payer OTHER, SELFPAY ==
[2022-12-26 18:24] LABS: Erythrocyte Sedimentation Rate 8 mm/hr (0-30)
[2022-12-26 18:28] LABS: Vitamin D,25 Hydroxy 54.4 ng/mL
[2022-12-26 18:49] LABS: Anion Gap 6 (5-15); BUN 15 mg/dL (7-18); CRP < 2.90 mg/L (0.0-3.0); Calcium,Total 8.9 mg/dL (8.5-10.1); Chloride 106 mmol/L (98-107); Creatinine, Serum 0.79 mg/dL (0.55-1.02); EST Glomerular Filtration Rate 80 mL/min (>60); Est Glom Filt Rate - Afr Amer 97 mL/min (>60); Glucose 86 mg/dL (74-106); Potassium 3.4 mmol/L (3.5-5.1); Sodium Level 141 mmol/L (136-145); T4 Free Direct 0.89 ng/dL (0.76-1.46); Thyroid Stim Hormone (TSH) 1.56 uIU/mL (0.358-3.74)
== END | disposition home or self-care (01) ==
LOC: MTLAB 16:55
PROVIDERS: PCP Family Medicine; Visit Provider Family Medicine
DX: E55.9 Vitamin D deficiency, unspecified (principal); R79.82 Elevated C-reactive protein (CRP); Z13.1 Encounter for screening for diabetes mellitus; E89.0 Postprocedural hypothyroidism
CPT/HCPCS: 36415; 80048; 82306; 84439; 84443; 85652; 86140

== ENCOUNTER → 2023-06-24 | Outpatient (CLI) | payer OTHER, SELFPAY ==
--- OUTSIDE RECORDS SUMMARY | 2023-06-24 12:30 | XMS RPT_ITS | CCD ---
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 Name Role Phone JELLY PIEDRA, DEEPA Attending Unavailable JELLY PIEDRA, DEEPA Attending Unavailable Micha Bustamante MD Primary Care Provider LYN SLAUGHTER Attending Unavailable MICHA BUSTAMANTE Primary Care Unavailabl e Allergies Allergy Classification Reported Allergen(s) Allergy Type Date of Onset Reaction(s) Facility (1 source) House dust mite Allergy to substance Other: See Comments [facility] Medications Completed/Discontinued Medications Medication Drug Class(es) Dates Sig (Normalized) Sig (Original) azelastine hydrochloride 0.137 mg/actuat metered dose nasal spray (1 source) Histamine-1 Receptor Antagonist Start: 05-20-2023 take 1 spray(s) nasal route twice daily as needed azelastine 0.1% nasal spray Use 1 [place] in each nostril two times a day as needed. 30 mL 5 05/20/2023 Active Problems Problem Classification Problem Date Documented Da te Episodic/Chronic Cancer of thyroid (2 sources) Malignant tumor of thyroid gland; Translations: [Malignant neoplasm of thyroid gland] Onset: 12-26-2009 12-26-2009 Chronic Other eye disorders (1 source) Dry eyes; Translations: [Dry eye syndrome of bilateral lacrimal glands] 05-20-2023 Episodic Other upper respiratory disease (2 sources) Allergic rhinitis due to house dust mite; Translations: [Other allergic rhinitis] Onset: 05-20-2023 05-20-2023 Chronic Other upper respiratory disease (2 sources) Vasomotor rhinitis; Translations: [Vasomotor rhinitis] Onset: 05-20-2023 3 Chronic Thyroid disorders (2 sources) Thyroid nodule; Translations: [Nontoxic single thyroid nodule] Onset: 11-05-2009 11-05-2009 Chronic Results Test Name Value Interpretation Reference Range Facil ity Vital Signs Date Time Vital Sign Value Performing Clinician Taye barbi 05-20-2023 08:02-0500 Body weight 85 kg Lyn Slaughter MD Work Phone: [facility] 05-20-2023 08:02-0500 Diastolic blood pressure 77 mm[Hg] Lyn Slaughter MD Work Phone: [facility] 05-20-2023 08:02-0500 Heart rate 66 /min Lyn Slaughter MD Work Phone: [facility] 05-20-2023 08:02-0500 SaO2% (BldA) [Mass fraction] 98 % Lyn Slaughter MD Work Phone: [facility] 05-20-2023 08:02-0500 Systolic blood pressure 139 mm[Hg] Lyn Slaughter MD Work Phone: [facility] Encounters Encounter Date Encounter Type Care Provider Facility Start: 05-20-2023 End: 05-20-2023 ambulatory LYN SLAUGHTER Facility:[facility] Start: 05-20-2023 End: 05-20-2023 Patient encounter procedure Lyn Slaughter MD Work Phone: Allergy Procedures Date Procedure Procedure Detail Performing Clinician Start: 05-20-2023 ALLERGEN SKIN TEST-I NHALENT 40 Lyn Slaughter MD Work Phone: Start: 05-20-2023 Intracutaneous tests w/allergenic extracts Lyn Slaughter MD Work Phone: Plan of Treatment Date Care Activity Detail Author Start: 02-08-2023 Covid-19 Vaccine () Covid-19 Vaccine () [facility] Start: 02-08-2023 Influenza vaccination Influenza Vacc ine (#1) [facility] Start: 01-14-2023 Urine microalbumin profile DTa P,Tdap,Td Vaccine (2 - Td or Tdap) [facility] Start: 06-10-2022 Depression Assessment Depression Ass essment [facility] Start: 10-30-2020 Diabetes Screening Diabetes Screenin g [facility] Start: 2016 Shingrix Vaccine (1 of 2) Shingrix V accine (1 of 2) [facility] Start: 11-27-2011 Cologuard (FIT-DNA) Cologuard (FIT-D NA) [facility] Start: 11-27-2011 Colonoscopy Colonoscopy [facility] Start: 11-27-2011 Colorectal Cancer Screening Colorectal Cancer Screening [facility] Start: 11-27-[address] Colonography [facility] Start: 11-27-2011 Fecal Occult Blood Fecal Occult Bloo d [facility] Start: 11-27-2011 Lipid 1996 panel - S bayron or Plasma Lipid Screening [facility] Start: 11-27-2011 Sigmoidoscopy Sigmoidoscopy [facility] Start: 04-16-2011 Pap Testing Pap Testing [facility] Start: 2006 Mammography Mammogram Screening [facility] Start: 1996 HPV Testing HPV Testing [facility] Start: 1985 Urine microalbumin profile DTa P,Tdap,Td Vaccine (1 - Tdap) [facility] Start: 1984 Hepatitis C Screening Hepatitis C Sc reening [facility] Start: 1984 HIV Screening HIV Screening [facility] Start: 05-28-1967 Covid-19 Vaccine (#1) Covid-19 Vacci ne (#1) [facility] Start: 1966 Hepatitis B Vaccine (1 of 3 - 3-dose series) Hepatitis B Vaccine (1 of 3 - 3-dose series) [facility] Immunizations Immunization Date Immunization Notes Care Provider Fa cility 05-21-2022 influenza virus vacc ine, unspecified formulation Lyn Slaughter MD Work Phone: [facility] Payers Date Payer Category Payer Unknown MMO MMO [employer] PPO [id number] 2022-Present [phone] [address] [place] [address] PPO [id number] 2022 Unknown [id number] 2022 Self-pay 1965 Unknown [id number] 1965 Unknown [id number] Social History Date Type Detail Facility Start: 10-30-2017 End: 05-20-2023 Tobacco smoking status NHIS Never smoked tobacco [facility] Work Phone: Start: 10-30-2017 End: 05-20-2023 Tobacco use and exposure Smokeless tobacco non-user [facility] Work Phone: Start: 01-24-2022 End: 05-20-2023 Alcohol intake Current drinker of alcohol (finding) [facility] Start: 10-30-2017 End: 05-17-2020 History of Social function [facility] Start: 10-30-2017 End: 05-17-2020 Tobacco use panel [facility] National Score (1-100), lower number is lower risk Not on file [facility] Start: 1965 Sex Assigned At Not on file [facility] NEGATED: Highlighted rowStart: NINF History of tobacco use Passive smoker [facility] Progress note 05-20-2023 Note Date & Type Note Facility 05-20-2023 Note HNO ID: [id number] Author: Lyn Slaughter MD Service: ? Author Type: Physician Type: Progress Notes Filed: 05/20/2023 11:51 AM Note Text: [facility] ALLERGY AND IMMUNOLOGY CONSULT Patient Name: Sisi Lozano PRIMARY CARE PHYSICIAN: Micha Bustamante MD REASON FOR CONSULT: allergy evaluation REQUESTING PHYSICIAN: No ref. provider found My final recommendations will be communicated to the requesting health care provider by way of the shared medical record for internal providers or letter via the [email or web address] for external providers. CHIEF COMPLAINT: Patient presents with: New Patient: Allergy evaluation HISTORY OF PRESENT ILLNESS: Sisi Lozano is a 57 year old female with a history of hypothyroidism who presents with allergy evaluation: Chronic rhinitis Started in her childhood. Primary symptom includes constant nasal congestion. Worse during the morning. Watery, goupy, dry eyes. Itchy at times. Uses lubricating Thera Tears providing relief. Symptoms are perennial. Somewhat better during the wintertime. Symptoms triggered by dust, mold (sxs worse at office and later found to have mold in vents), pollen, and strong scents. Had tried Flonase years ago for short period of time without major improvement. Has used Afrin in the past. Improves symptoms for an hour. Hasn't used since February. Zyrtec, Iram, Claritin without any major improvement. Currently using Zyrtec as needed. Prior allergy testing was positive to pollen, dust mite, mold, and cat/dog dander. Underwent SCIT for 5 years in her 30s. No history of asthma or eczema. Environmental history: Pets: dog(s) -- Poodle. Allowed in bedroom and sleeps in bed. Pillow: doesn't sleep with pillow Mattress: memory foam/tempurpedic Mite Proof Covers: No Bedrm Carpet [id number]: Yes A/C: Central Humidifier: No Hobbies: n/a Work: n/a PAST MEDICAL HISTORY Diagnosis Date NEGATIVE MEDICAL HISTORY ACTIVE PROBLEM LIST Thyroid Nodule Thyroid Cancer (Hcc) PAST SURGICAL HISTORY Procedure Laterality Date DELIVERY ONLY , low cervical FNA WITH IMAGING 11/05/2009 U/S FNA right thyroid PAST SURGICAL HISTORY OF Novasure PAST SURGICAL HISTORY OF removal of cervical cancer, cone bx THYROIDECTOMY TOTAL/COMPLETE 12-13-2009 FAMILY HISTORY Problem Relation Age of Onset Emphysema Maternal Grandmother Hypertension Mother Hypertension Father Lipids Mother Lipids Brother Allergic rhinitis:yes: son. Asthma: yes: son. Eczema: yes: son. Cystic fibrosis: no. Immunodeficiency: no. Social History Tobacco Use Smoking status: Never Smokeless tobacco: Never Substance Use Topics Alcohol use: Yes Comment: occasional Drug use: No ALLERGIES: ALLERGIES No Known Allergies CURRENT OUTPATIENT MEDICATIONS: LEVOTHYROXINE SODIUM (SYNTHROID ORAL) Take by mouth. cholecalciferol, vitamin D3, 50,000 unit tab Take by mouth. spironolactone(ALDACTONE 100 MG TAB) Take on tablet daily MOTRIN 600 MG TAB Take one (1) tablet every 4 -6 hours as needed REVIEW OF SYSTEMS: HEENT: See HPI RESPIRATORY: See HPI CONSTITUTIONAL: No acute distress. No weight loss or gain, no fevers or chills CARDIOVASCULAR: negative for chest pain, leg swelling or palpitations. GASTROINTESTINAL: Negative for abdominal discomfort, No blood in stools or black stools MUSCULOSKELETAL: negative for joint pain or swelling, back pain or muscle pain. NEUROLOGIC:Negative for focal numbness or weakness, headaches and dizziness or syncope. DERM/SKIN: no new rashes, hives, or skin eruptions. PSYCHIATRIC: Negative for sleep disturbance, mood disorder and recent psychosocial stressors HEMATOLOGIC/LYMPHATIC/IMMUNOLOGIC:Negativ e for cold or heat intolerance, polyuria, polydipsia and goiter. PHYSICAL EXAM: BP 139/77 Pulse 66 Wt 187 lb 6.3 oz (85.0kg) SpO2 98% General appearance: Well appearing, alert, in no acute distress, well-hydrated, well nourished. HENT: External ears normal, canals clear, TM's normal Eyes: no scleral icterus, PERRLA, EOMS, no conjunctivitis Nose/Sinuses: Nares normal. Septum mild deviation. Mucosa erythema. Clear drainage. No sinus tenderness. Oropharynx: Lips, mucosa, and tongue normal, teeth and gums normal, oropharynx normal Respiratory: Lungs clear to auscultation. No wheezing, rhonchi, rales Cardiovascular: RRR without murmur, gallop, or rubs. No ectopy Gastroenterology: Normal appearing abdomen on inspection Musculoskeletal: No joint pain, muscle weakness, or impaired gait Integumentary: Negative for lesions, rash, and itching. DATA: Allergy Skin Testing 05/20/2023 Sensitized to dust mites. Assessment/Recommendations: 1. Allergic rhinitis due to dust mite 2. Vasomotor rhinitis Comment: She has perennial nasal congestion that is worse in the morning and with strong scents. Allergy testing was positive to dus (more content not included)... [facility] Instructions 05-20-2023 Patient Instructions Note Date & Type Note Facility 05-20-2023 Instructions Lyn Slaughter MD - 05/20/2023 9:21 AM EST Flonase 2 sprays per nostril daily every evening. Cetirizine 10 mg daily every morning. Azelastine 1 spray per nostril twice daily as needed. Allergy Avoidance DUST MITE: Dust mites are tiny insects that cannot be seen with the naked eye. They live and multiply easily in warm, humid places. Dust mite particles are often found in pillows, mattresses, carpeting, and upholstered (cloth-covered) furniture. When anyone vacuums, walks on a carpet, sits on a chair or disturbs bedding, dust mite particles float into the air and you breathe them in. This can trigger allergy and asthma symptoms. It is impossible to get rid of dust or dust mites completely, but you can reduce allergy symptoms by taking the measures below. Since up to one-third of the day is spent sleeping, we emphasize measures in the bedroom. How to reduce exposure to dust mite: - Wash sheets, pillow cases, and other bedding once a week in hot water (130 F). - Use airtight, dust-proof covers for pillows, blankets, mattresses, and box springs. Avoid plastic covers, as they tend to tear quickly and do not breathe. - Look for dust catchers in the bedroom: Cloth-covered furniture, heavy drapes, houseplants, bookshelves, blinds, and stuffed animals collect dust. Remove these or wipe them down with a wet cloth every week. - Mop floors and wipe down hard surface furniture with a moist cloth once a week. - Change the air filter in your furnace every month. Use high-efficiency air filters. - Keep humidity in the home <50%. Avoid using home humidifiers. - If possible, replace zjow-xe-fgsb carpet in the bedroom with tile, hardwood or linoleum. -Remove area rugs from your bedroom. - If you cannot remove carpeting, vacuum at least once per week. Use a vacuum freight car cleaner with a HEPA filter or special double-thickness filter. Wash throw rugs often. documented in this encounter [facility] Nurse Note 05-20-2023 Ling Nolasco RN - 05/20/2023 7:56 AM EST Note Date & Type Note Facility 05-20-2023 Nurse Note Patient c/o nasal congestion perennially. Congestion affects sleep and worse in the AM. Itchy eyes at times. Has tried multiple otc antihistamines without relief. Tried flonase and afrin with only temporary relief. Was on SCIT 20 years ago. No antihistamines in past 5 days. documented in this encounter [facility] History of Present illness Narrative 05-20-2023 Lyn Slaughter MD - 05/20/2023 7:52 AM EST Note Date & Type Note Facility 05-20-2023 History of Presen t illness Narrative [facility] ALLERGY & IMMUNOLOGY CONSULT Patient Name: Sisi Lozano PRIMARY CARE PHYSICIAN: Micha Bustamante MD REASON FOR CONSULT: allergy evaluation REQUESTING PHYSICIAN: No ref. provider found My final recommendations will be communicated to the requesting health care provider by way of the shared medical record for internal providers or letter via the [employer] for external providers. CHIEF COMPLAINT: Patient presents with: New Patient: Allergy evaluation HISTORY OF PRESENT ILLNESS: Sisi Lozano is a 57 year old female with a history of hypothyroidism who presents with allergy evaluation: Chronic rhinitis Started in her childhood. Primary symptom includes constant nasal congestion. Worse during the morning. Watery, goupy, dry eyes. Itchy at times. Uses lubricating Thera Tears providing relief. Symptoms are perennial. Somewhat better during the wintertime. Symptoms triggered by dust, mold (sxs worse at office and later found to have mold in vents), pollen, and strong scents. Had tried Flonase years ago for short period of time without major improvement. Has used Afrin in the past. Improves symptoms for an hour. Hasn't used since February. Zyrtec, Iram, Claritin without any major improvement. Currently using Zyrtec as needed. Prior allergy testing was positive to pollen, dust mite, mold, and cat/dog dander. Underwent SCIT for 5 years in her 30s. No history of asthma or eczema. Environmental history: Pets: dog(s) -- Poodle. Allowed in bedroom and sleeps in bed. Pillow: doesn't sleep with pillow Mattress: memory foam/tempurpedic Mite Proof Covers: No Bedrm Carpet Waoy-ag-Zwix: Yes A/C: Central Humidifier: No Hobbies: n/a Work: n/a PAST MEDICAL HISTORY Diagnosis Date NEGATIVE MEDICAL HISTORY ACTIVE PROBLEM LIST Thyroid Nodule Thyroid Cancer (Hcc) PAST SURGICAL HISTORY Procedure Laterality Date DELIVERY ONLY , low cervical FNA WITH IMAGING 11/05/2009 U/S FNA right thyroid PAST SURGICAL HISTORY OF Novasure PAST SURGICAL HISTORY OF removal of cervical cancer, cone bx THYROIDECTOMY TOTAL/COMPLETE 12-13-2009 FAMILY HISTORY Problem Relation Age of Onset Emphysema Maternal Grandmother Hypertension Mother Hypertension Father Lipids Mother Lipids Brother Allergic rhinitis:yes: son. Asthma: yes: son. Eczema: yes: son. Cystic fibrosis: no. Immunodeficiency: no. Social History Tobacco Use Smoking status: Never Smokeless tobacco: Never Substance Use Topics Alcohol use: Yes Comment: occasional Drug use: No ALLERGIES: ALLERGIES No Known Allergies CURRENT OUTPATIENT MEDICATIONS: LEVOTHYROXINE SODIUM (SYNTHROID ORAL) Take by mouth. cholecalciferol, vitamin D3, 50,000 unit tab Take by mouth. spironolactone(ALDACTONE 100 MG TAB) Take on tablet daily MOTRIN 600 MG TAB Take one (1) tablet every 4 -6 hours as needed REVIEW OF SYSTEMS: HEENT: See HPI RESPIRATORY: See HPI CONSTITUTIONAL: No acute distress. No weight loss or gain, no fevers or chills CARDIOVASCULAR: negative for chest pain, leg swelling or palpitations. GASTROINTESTINAL: Negative for abdominal discomfort, No blood in stools or black stools MUSCULOSKELETAL: negative for joint pain or swelling, back pain or muscle pain. NEUROLOGIC:Negative for focal numbness or weakness, headaches and dizziness or syncope. DERM/SKIN: no new rashes, hives, or skin eruptions. PSYCHIATRIC: Negative for sleep disturbance, mood disorder and recent psychosocial stressors HEMATOLOGIC/LYMPHATIC/IMMUNOLOGIC:Neg ative for cold or heat intolerance, polyuria, polydipsia and goiter. PHYSICAL EXAM: BP 139/77 Pulse 66 Wt 187 lb 6.3 oz (85.0kg) SpO2 98% General appearance: Well appearing, alert, in no acute distress, well-hydrated, well nourished. HENT: External ears normal, canals clear, TM's normal Eyes: no scleral icterus, PERRLA, EOMS, no conjunctivitis Nose/Sinuses: Nares normal. Septum mild deviation. Mucosa erythema. Clear drainage. No sinus tenderness. Oropharynx: Lips, mucosa, and tongue normal, teeth and gums normal, oropharynx normal Respiratory: Lungs clear to auscultation. No wheezing, rhonchi, rales Cardiovascular: RRR without murmur, gallop, or rubs. No ectopy Gastroenterology: Normal appearing abdomen on inspection Musculoskeletal: No joint pain, muscle weakness, or impaired gait Integumentary: Negative for lesions, rash, and itching. DATA: Allergy Skin Testing 05/20/2023 Sensitized to dust mites. Assessment/Recommendations: 1. Allergic rhinitis due to dust mite 2. Vasomotor rhinitis Comment: She has perennial nasal congestion that is worse in the morning and with strong scents. Allergy testing was positive to dust mite. Suspect mixed allergic rhinitis due to dust mite and vasomotor rhinitis. -Allergen avoidance measures for dust mite -Flonase 2 sp/n every evening. Counseled on regular use. -Cetirizine 10 mg every morning -Rx Azelastine 1 sp/n BID PRN (exposure to irritants) 3. Dry eyes -Continue with lubricating eye drops Follow-up in 3 months - patient will return sooner should new symptoms or problems arise. I spent a total of 48 minutes on the date of the service which included preparing to see the patient, [id number] patient care, completing clinical documentation, obtaining and/or reviewing separately obtained history, performing a medically appropriate examination, counseling and educating the patient/family/caregiver, ordering medications, tests, or procedures, independently interpreting results (not separately reported), communicating results to the patient/family/caregiver, and care coordination (not separately reported). Lyn Slaughter M.D. Allergy and Clinical Immunology [facility] documented in this encounter [facility] Clinical Note 07-17-2022 Note Date & Type Note Facility 07-17-2022 Note ORIGINAL EXAMINATION: MRI OF THE LEFT KNEE WITHOUT CONTRAST, 07/17/2022 8:01 am TECHNIQUE: Multiplanar multisequence MRI of the left knee was performed without the administration of intravenous contrast. COMPARISON: None. HISTORY: ORDERING SYSTEM PROVIDED HISTORY: Reason for Exam: Injury to knee July 02, fall landing on knee. Anteromedial knee pain. FINDINGS: MENISCI: There is mild intrasubstance degeneration involving the posterior horn of the medial meniscus. No discrete medial meniscal tear is identified. The lateral meniscus is intact. CRUCIATE LIGAMENTS: Intact anterior cruciate and posterior cruciate ligaments. EXTENSOR MECHANISM: Intact quadriceps and patellar tendons. Intact patellar retinacula. LATERAL COLLATERAL LIGAMENT COMPLEX: Intact IT band, lateral collateral ligament proper, biceps femoris tendon and popliteus tendon. MEDIAL COLLATERAL LIGAMENT COMPLEX: There is thickening of the proximal portions of the superficial medial collateral ligament with periligamentous edema. No high-grade tearing. KNEE JOINT: There is low-grade thinning of the weight-bearing portions of the medial femoral condyle. No high-grade cartilage thinning. Lateral femorotibial patellofemoral compartment articular cartilage is intact. Moderate volume effusion. Suprapatellar plica. Trace volume Moyer's cyst with element of partial rupture. Fluid is noted tracking inferiorly. BONE MARROW: No evidence of fracture. Normal marrow signal. IMPRESSION: 1. Acute on chronic low-grade medial collateral ligament sprain. 2. Moderate volume effusion. 3. Mild medial femorotibial osteoarthrosis. I have personally reviewed the images of this examination and agree with the resident's findings and interpretations. Interpreted by: Yuniel Tan DO Preliminary Report By: Madeleine Thapa Electronically signed By Yuniel Tan DO Dictated Date: 07/17/2022 8:07:41 AM Prelim Date: 07/17/2022 11:41:52 AM Sign Date: 07/17/2022 11:41:52 AM Ordering Provider: DEEPA REAVES [facility] Clinical Note 07-17-2022 Note Date & Type Note Facility 07-17-2022 Note ORIGINAL EXAMINATION: MRI OF THE LEFT KNEE WITHOUT CONTRAST, 07/17/2022 8:01 am TECHNIQUE: Multiplanar multisequence MRI of the left knee was performed without the administration of intravenous contrast. COMPARISON: None. HISTORY: ORDERING SYSTEM PROVIDED HISTORY: Reason for Exam: Injury to knee July 02, fall landing on knee. Anteromedial knee pain. FINDINGS: MENISCI: There is mild intrasubstance degeneration involving the posterior horn of the medial meniscus. No discrete medial meniscal tear is identified. The lateral meniscus is intact. CRUCIATE LIGAMENTS: Intact anterior cruciate and posterior cruciate ligaments. EXTENSOR MECHANISM: Intact quadriceps and patellar tendons. Intact patellar retinacula. LATERAL COLLATERAL LIGAMENT COMPLEX: Intact IT band, lateral collateral ligament proper, biceps femoris tendon and popliteus tendon. MEDIAL COLLATERAL LIGAMENT COMPLEX: There is thickening of the proximal portions of the superficial medial collateral ligament with periligamentous edema. No high-grade tearing. KNEE JOINT: There is low-grade thinning of the weight-bearing portions of the medial femoral condyle. No high-grade cartilage thinning. Lateral femorotibial patellofemoral compartment articular cartilage is intact. Moderate volume effusion. Suprapatellar plica. Trace volume Moyer's cyst with element of partial rupture. Fluid is noted tracking inferiorly. BONE MARROW: No evidence of fracture. Normal marrow signal. IMPRESSION: 1. Acute on chronic low-grade medial collateral ligament sprain. 2. Moderate volume effusion. 3. Mild medial femorotibial osteoarthrosis. I have personally reviewed the images of this examination and agree with the resident's findings and interpretations. Interpreted by: Yuniel Tan DO Preliminary Report By: Madeleine Thapa Electronically signed By Yuniel Tan DO Dictated Date: 07/17/2022 8:07:41 AM Prelim Date: 07/17/2022 11:41:52 AM Sign Date: 07/17/2022 11:41:52 AM Ordering Provider: DEEPA REAVES [facility] Evaluation + Plan note Note Date & Type Note Facility Evaluation + Plan note No data available for this section [facility] Evaluation note Note Date & Type Note Facility documented in this encounter [facility] Discharge instructions Note Date & Type Note Facility Hospital Discharge instructions No data available for this section [facility] Note Note Date & Type Note Facility Note ARAVIND MANZANARES MD: SIGN, VERIFY Event Display: VL Venous US/Doppler One Leg (DVT) [facility] Summary Purpose Family History No Family History Records FoundNo Family History Records Found Advance Directives No Advanced Directives Records FoundNo Advanced Directives Records Found Additional Source Comments INFORMATION SOURCE (unrecogn ized section and content) DATE CREATED AUTHOR AUTHOR'S ORGANIZ ATION 05/21/2023 [facility] Source Comments (unrecognize d section and content) In the event this informatio n is protected by the Federal Confidentiality of Alcohol and Drug Abuse Patient Records regulations: The Federal rules restrict any use of the information to criminally investigate or prosecute any alcohol or drug abuse patient.[facility] the event this information is protected by the Federal Confidentiality of Alcohol and Drug Abuse Patient Records regulations: The Federal rules restrict any use of the information to criminally investigate or prosecute any alcohol or drug abuse patient.[facility] Care Teams (unrecognized sec tion and content) 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 This clinical summary was aggregated from multiple sources. Caution should be exercised in using it in the provision of clinical care. This summary normalizes information from multiple sources, and as a consequence, information in this document may materially change the coding, format and clinical context of patient data. In addition, data may be omitted in some cases. CLINICAL DECISIONS SHOULD BE BASED ON THE PRIMARY CLINICAL RECORDS. [facility]. provides no warranty or guarantee of the accuracy or completeness of information in this document.
[2023-06-24 15:59] LABS: T4 Free Direct 1.17 ng/dL (0.76-1.46); Thyroid Stim Hormone (TSH) 0.31 uIU/mL (0.358-3.74)
== END | disposition home or self-care (01) ==
LOC: MFPLAB 12:04
PROVIDERS: PCP Family Medicine; Visit Provider Family Medicine
DX: E89.0 Postprocedural hypothyroidism (principal)
CPT/HCPCS: 36415; 84439; 84443

== ENCOUNTER → 2023-09-24 | Outpatient (CLI) | payer OTHER, SELFPAY ==
--- NOTE | 2023-09-24 07:11 | BI_ITS ---
MAMMOGRAPHY - BILATERAL SCREENING REASON FOR EXAM: Female, 57 years old. Routine annual screening examination. PERTINENT HISTORY: Non-contributory. TECHNIQUE: Digital bilateral breast minesh (3D mammographic acquisition) in the CC and MLO projections. 2-D mediolateral oblique (MLO) and craniocaudad (CC) views of both breasts were obtained. CAD: Full Field Digital Mammography with Computer Added Detection was performed. COMPARISON: Comparison is made with prior study September 20, 2022 and August 16, 2021. FINDINGS: Breast Composition: The breasts are almost entirely fatty. There are no dominant masses or suspicious calcifications. Stable benign-appearing bilateral axillary nodes. No other significant abnormalities are identified. There has been no significant change since the prior study. BI/SCRN MAMM (CAD)W/MINESH BILAT IMPRESSION: Stable bilateral screening mammogram. Yearly follow-up mammogram recommended. (A) ASSESSMENT CATEGORY: BIRADS Category 2: Benign. A letter regarding these results will be sent to the patient by the facility within 30 days. Approximately 10% of breast cancers are not detected by mammography. A normal mammogram should not delay biopsy of a clinically suspicious abnormality. [id number] Electronically Signed: Josiah Hurtado MD at 8:14 EDT ,
== END | disposition home or self-care (01) ==
LOC: OPBI 07:10
PROVIDERS: PCP Family Medicine; Referring Provider Family Medicine; Visit Provider Family Medicine
DX: Z12.31 Encounter for screening mammogram for malignant neoplasm of breast (principal)
CPT/HCPCS: 77063; 77067

== ENCOUNTER 2023-12-18 15:22 | Outpatient (RCR) | payer OTHER, SELFPAY | END 2024-01-08 23:59 | LOC: NS 15:22 | PROVIDERS: PCP Family Medicine; Referring Provider Family Medicine; Visit Provider Family Medicine | DX: Z71.3 Dietary counseling and surveillance (principal); E66.3 Overweight; Z68.25 Body mass index [BMI] 25.0-25.9, adult | CPT/HCPCS: 97802 ==

== ENCOUNTER → 2024-01-10 | Outpatient (CLI) | payer OTHER, SELFPAY ==
[2024-01-10 10:45] LABS: Vitamin D,25 Hydroxy 109.8 ng/mL
[2024-01-10 10:49] LABS: Anion Gap 5 (5-15); BUN 18 mg/dL (7-18); BUN/Creat Ratio 18.8 RATIO (10-20); Calcium,Total 9.6 mg/dL (8.5-10.1); Chloride 106 mmol/L (98-107); Cholesterol 202 mg/dL (200); Creatinine, Serum 0.96 mg/dL (0.55-1.02); EST Glomerular Filtration Rate 64 mL/min (>60); Est Glom Filt Rate - Afr Amer 77 mL/min (>60); Glucose 85 mg/dL (74-106); High Density Lipoprotein 55 mg/dL; Potassium 3.6 mmol/L (3.5-5.1); Sodium Level 140 mmol/L (136-145); T4 Free Direct 1.11 ng/dL (0.76-1.46); Thyroid Stim Hormone (TSH) 1.51 uIU/mL (0.358-3.74); Triglycerides 111 mg/dL; Very Low Density Lipoprotein 22 mg/dL (5-40)
== END | disposition home or self-care (01) ==
LOC: MFPLAB 08:33
PROVIDERS: PCP Family Medicine; Visit Provider Family Medicine
DX: E89.0 Postprocedural hypothyroidism (principal); E55.9 Vitamin D deficiency, unspecified; Z13.1 Encounter for screening for diabetes mellitus; Z13.220 Encounter for screening for lipoid disorders
CPT/HCPCS: 36415; 80048; 80061; 82306; 84439; 84443

== ENCOUNTER 2024-01-20 12:57 | Outpatient (RCR) | payer OTHER, SELFPAY | END 2024-02-08 23:59 | LOC: NS 12:57 | PROVIDERS: PCP Family Medicine; Referring Provider Family Medicine; Visit Provider Family Medicine | DX: Z71.3 Dietary counseling and surveillance (principal); E66.3 Overweight; Z68.24 Body mass index [BMI] 24.0-24.9, adult | CPT/HCPCS: 97803 ==

== ENCOUNTER 2024-02-18 15:51 | Outpatient (RCR) | payer OTHER, SELFPAY | END 2024-03-09 23:59 | LOC: NS 15:51 | PROVIDERS: PCP Family Medicine; Referring Provider Family Medicine; Visit Provider Family Medicine | DX: Z71.3 Dietary counseling and surveillance (principal); E66.3 Overweight; Z68.24 Body mass index [BMI] 24.0-24.9, adult | CPT/HCPCS: 97803 ==

== ENCOUNTER 2024-09-15 07:25 | Outpatient (CLI) | payer OTHER, SELFPAY ==
[2024-09-15 11:25] LABS: Anion Gap 12 (5-15); BUN 17 mg/dL (4-19); BUN/Creat Ratio 17.8 RATIO (10-20); Carbon Dioxide 26.1 mmol/L (21.0-32.0); Chloride 104 mmol/L (98-108); Creatinine, Serum 0.96 mg/dL (0.70-1.20); EST Glomerular Filtration Rate 69 (>60); Glucose 79 mg/dL (70-99); Sodium Level 142 mmol/L (133-145)
== END 2024-09-15 23:59 | disposition home or self-care (01) ==
LOC: MTLAB 07:26
PROVIDERS: PCP Family Medicine; Referring Provider Family Medicine; Visit Provider Family Medicine
DX: E89.0 Postprocedural hypothyroidism (principal); Z13.1 Encounter for screening for diabetes mellitus; E55.9 Vitamin D deficiency, unspecified
CPT/HCPCS: 36415; 80048; 82306; 84439; 84443

== ENCOUNTER → 2024-09-28 | Outpatient (CLI) | payer OTHER, SELFPAY ==
--- NOTE | 2024-09-28 07:04 | BI_ITS ---
EXAM: SCRN MAMM (CAD)W/MINESH BILAT DATE: 09/28/2024 CLINICAL HISTORY: F, Age 58 y/o , SCREENING No family history. BREAST CANCER RISK ASSESSMENT: Not assessed. TECHNIQUE: Bilateral screening digital breast tomosynthesis with 2D and 3D images. Computer aided detection. COMPARISON: Prior exam(s) dated September 24, 2023.. FINDINGS: TISSUE DENSITY: The breast tissue is almost entirely fatty. Bilateral Breast Mammographic Findings: No significant masses, calcifications or other abnormalities are identified. No suspicious masses, areas of developing architectural distortion, or suspicious calcifications. There has been no significant interval change. BI/SCRN MAMM (CAD)W/MINESH BILAT IMPRESSION: OVERALL FINAL ASSESSMENT: BIRADS 1 NEGATIVE RECOMMENDATION: Routine annual follow-up in 1 Year A letter with findings and recommendations will be mailed to the patient. Reading Location: [place] [id number]
== END | disposition home or self-care (01) ==
LOC: OPBI 07:03
PROVIDERS: PCP Family Medicine; Referring Provider Family Medicine; Visit Provider Family Medicine
DX: Z12.31 Encounter for screening mammogram for malignant neoplasm of breast (principal)
CPT/HCPCS: 77063; 77067